=== PATIENT | female | born 1960 | race Caucasian/White ===

== ENCOUNTER → 2016-10-21 | Outpatient (REF) ==
--- NOTE | 2016-10-21 13:57 | REP ---
Clinical: Medical examination . Comparison: 08/02/2013 . Technique: PA and lateral. Findings: The mediastinum and cardiac silhouette are normal. The lung gerardo are clear and without acute consolidation, effusion, or pneumothorax. The skeletal structures are intact and normal. Impression: 1. No acute cardiopulmonary process. Signed by Ty Jenkins MD 10/21/2016 01:49 P
[2016-10-21 14:14] LABS: MEAN CORPUSCULAR HEMOGLOBIN 30.3 pg (27.0-33.0); MEAN CORPUSCULAR HGB CONC 32.5 g/dl (32.0-36.5); MEAN CORPUSCULAR VOLUME 93.1 fl (80.0-96.0); RED CELL DISTRIBUTION WIDTH 13.6 % (11.5-14.5); WHITE BLOOD COUNT 5.6 K/mm3 (4.0-10.0)
[2016-10-21 14:25] LABS: ANION GAP 4 MEQ/L (8-16); BLOOD UREA NITROGEN 17 MG/DL (7-18); CALCIUM LEVEL 9.3 MG/DL (8.5-10.1); CARBON DIOXIDE LEVEL 31 MEQ/L (21-32); CHLORIDE LEVEL 107 MEQ/L (98-107); CHOLESTEROL LEVEL 227 MG/DL (<200); CREATININE FOR GFR 0.73 MG/DL (0.55-1.02); GLOMERULAR FILTRATION RATE > 60.0 (>51); GLUCOSE, FASTING 89 MG/DL (70-105); POTASSIUM SERUM 4.3 MEQ/L (3.5-5.1); SODIUM LEVEL 142 MEQ/L (136-145); TRIGLYCERIDES LEVEL 137 MG/DL (<150)
--- NOTE | 2016-10-21 14:49 | ECGEPIP ---
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 Electronically Signed On 10-21-2016 14:49:23 EST by Joaquin Andino
[2016-10-22 11:46] LABS: HEPATITIS B SURFACE ANTIBODY POSITIVE (POSITIVE)
== END ==
LOC: M LAB 13:03
PROVIDERS: ATTEND Nurse Practitioner Adult Health
DX: Z00.00 Encounter for general adult medical examination without abnormal findings (principal)

== ENCOUNTER → 2016-12-01 | Outpatient (CLI) | payer BC | LOC: M LAB 10:45 | PROVIDERS: ATTEND Nurse Practitioner Adult Health | DX: N39.0 Urinary tract infection, site not specified (principal) ==

== ENCOUNTER → 2017-05-19 | Outpatient (REF) | payer BC | LOC: M LAB REF 12:41 | PROVIDERS: ATTEND Nurse Practitioner Adult Health | DX: D51.9 Vitamin B12 deficiency anemia, unspecified (principal) ==

== ENCOUNTER → 2018-09-01 | Outpatient (REF) ==
[2018-09-01 07:30] LABS: HEMATOCRIT 41.4 % (36.0-47.0); HEMOGLOBIN 13.2 g/dl (12.0-15.5); MEAN CORPUSCULAR HEMOGLOBIN 30.2 pg (27.0-33.0); MEAN CORPUSCULAR HGB CONC 31.9 g/dl (32.0-36.5); MEAN CORPUSCULAR VOLUME 94.7 fl (80.0-96.0); PLATELET COUNT, AUTOMATED 244 10^3/uL (150-450); RED BLOOD COUNT 4.37 10^6/uL (4.00-5.40); WHITE BLOOD COUNT 5.4 10^3/uL (4.0-10.0)
[2018-09-01 07:51] LABS: APPEARANCE, URINE CLEAR (CLEAR); BACTERIA, URINE AUTO NEGATIVE (NEGATIVE); BILIRUBIN, URINE AUTO NEGATIVE (NEGATIVE); BLOOD, URINE BLOOD NEGATIVE (NEGATIVE); COLOR, URINE YELLOW (YELLOW); GLUCOSE, URINE (UA) AUTO NEGATIVE (NEGATIVE); KETONE, URINE AUTO NEGATIVE (NEGATIVE); LEUKOCYTE ESTERASE, URINE AUTO NEGATIVE (NEGATIVE); NITRITE, URINE AUTO NEGATIVE (NEGATIVE); PROTEIN, URINE AUTO NEGATIVE (NEGATIVE); RBC, URINE AUTO 3 /HPF (0-3); SPECIFIC GRAVITY URINE AUTO 1.014 (1.002-1.035); SQUAMOUS EPITHELIAL CELL UR AU 0 /HPF (0-6); UROBILINOGEN, URINE AUTO 0.2 mg/dL (0.0-2.0); WBC, URINE AUTO 0 /HPF (0-3)
[2018-09-01 08:05] LABS: BLOOD UREA NITROGEN 14 MG/DL (7-18); CARBON DIOXIDE LEVEL 27 MEQ/L (21-32); CHLORIDE LEVEL 108 MEQ/L (98-107); CHOLESTEROL LEVEL 241 MG/DL (<200); CHOLESTEROL RISK RATIO 3.597 (<5); CREATININE FOR GFR 0.72 MG/DL (0.55-1.30); GLOMERULAR FILTRATION RATE > 60.0 (>51); GLUCOSE, FASTING 78 MG/DL (70-100); HDL CHOLESTEROL 67 MG/DL (>40); LDL CHOLESTEROL 153 MG/DL (<100); NON-HDL-C 174 MG/DL; POTASSIUM SERUM 4.3 MEQ/L (3.5-5.1); SODIUM LEVEL 143 MEQ/L (136-145); TRIGLYCERIDES LEVEL 103 MG/DL (<150)
--- NOTE | 2018-09-01 21:41 | ECGEPIP ---
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
== END ==
LOC: M LAB 06:38
PROVIDERS: ATTEND Nurse Practitioner Adult Health
DX: Z00.00 Encounter for general adult medical examination without abnormal findings (principal)

== ENCOUNTER → 2019-06-05 | Outpatient (REF) | payer BC ==
[2019-06-05 14:12] LABS: INR 1.02; PROTHROMBIN TIME 13.1 SECONDS (11.8-14.0)
== END ==
LOC: M LAB REF 12:36
PROVIDERS: ATTEND Nurse Practitioner Adult Health
DX: Z01.818 Encounter for other preprocedural examination (principal)

== ENCOUNTER → 2019-10-30 | Outpatient (POV) | payer BC ==
[~2019-10-30] VITALS: Ht 167.6 cm; Wt 71.8 kg
[2019-10-30 10:00] VITALS: BP 144/71
--- NOTE | 2019-10-31 10:04 | IRCOV ---
[facility] IR Consult Office Visit IR Consult Office Visit DATE: Oct 30, 2019 REASON FOR CONSULTATION/CHIEF COMPLAINT: Varicose veins. HISTORY OF PRESENT ILLNESS: 58-year-old female with long history of left lower extremity pain and swelling associated with bulging varicose veins. Legs are itchy all day. She is on her feet all day, she does wear compression stockings without much relief. She reports prior vein stripping in the left lower extremity 2. Effects lasted less than a year. No prior deep vein thrombosis. She does have a family history of varicose veins. ALLERGIES: Please see below. HOME MEDICATIONS: Please see below. PAST MEDICAL HISTORY: Cobalamin deficiency. Varicose veins. PAST SURGICAL HISTORY: 1. Breast biopsy Varicose vein ligation Partial hysterectomy FAMILY HISTORY: Father's side of the family - varicose veins. SOCIAL HISTORY: Nonsmoker. No alcohol or drugs. REVIEW OF SYSTEMS: Otherwise negative. PHYSICAL EXAMINATION: VITAL SIGNS: Please see below. GENERAL APPEARANCE: Appears well. Comfortable at rest. HEENT: No scleral icterus. RESPIRATORY: Normal breathing at rest. CARDIOVASCULAR: Normal rate. ABDOMEN: Soft nontender. EXTREMITIES: Left lower extremity: Left lower extremity appears larger than the right lower extremity. Visible bulging varicose veins along the GSV distribution. Superficial spider veins are noted. No hemosiderin deposition. No lipodermatosclerosis. No ulcers. Warm to touch. DP/PT + Right lower extremity:: Warm to touch. No edema, no visible varicosities. DP/PT + NEUROLOGICAL: Alert and oriented. PSYCHIATRIC: Appropriate to circumstance. LABORATORY DATA: Please see below. Imaging: I reviewed the ultrasound left lower extremity venous reflux study from October 2019. There is reflux in the saphenous system. ASSESSMENT/PLAN: 58-year-old female with left lower extremity venous hypertension associated with pain and swelling. She would benefit from EVLT therapy. We discussed the risks and benefits of the procedure and she would like to proceed. We will scheduled the patient for this procedure. I spent 30 minutes in consultation with the patient. Thank you for this referral. Nathalie Wilburn Allergies Coded Allergies: MS - Penicillins (Unverified Allergy, Intermediate, RASH, 12/04/12) MS - Penicillins Cross Reactors (Unverified Allergy, Intermediate, RASH, 12/04/12) MS - Sulfa Drugs (Unverified Allergy, Intermediate, RASH, 12/04/12) Replaces SULFAMETHOXAZ MS - Sulfa Drugs Cross Reactors (Unverified Allergy, Intermediate, RASH, 12/04/12) Replaces SULFAMETHOXAZ MS - Sulfamethoxazole (Unverified Allergy, Intermediate, RASH, 12/04/12) Replaces SULFAMETHOXAZ MS - Trimethoprim (Unverified Allergy, Intermediate, RASH, 12/04/12) Replaces SULFAMETHOXAZ VS, I&O, 24H, Fishbone Vital Signs/I&O Vital Signs Date Time Temp Pulse Resp B/P (MAP) Pulse Ox O2 Delivery O2 Flow Rate FiO2 10/30/19 10:00 97.9 75 18 144/71 (95) 98 Room Air JENNY WETZEL MD Oct 31, 2019 10:04
== END ==
LOC: M IRPOV 09:47
PROVIDERS: ATTEND Radiology Diagnostic Radiology
DX: I87.302 Chronic venous hypertension (idiopathic) without complications of left lower extremity (principal); M79.605 Pain in left leg

== ENCOUNTER → 2020-02-18 | Outpatient (CLI) | payer BC ==
[~2020-02-18] MED LIST: ALBU8.5H INH; LIDOCAINE 1% MDV 20ML VIAL As Ordered ONE; LIDOCAINE 2% MDV 20ML VIAL As Ordered ONE; MIDAZOLAM INJ 2MG/2ML VIAL (J2250 PER 1MG) As Ordered ONE; PROMETHAZINE INJ 25 MG/ML VIAL (J2550) As Ordered ONE; diphenhydrAMINE 50MG/ML VIAL (J1200) As Ordered ONE; fentaNYL 100 MCG/2 ML INJECTION (J3010) As Ordered ONE
[2020-02-18 15:45] VITALS: BP 113/67
--- NOTE | 2020-02-21 11:01 | REP ---
IR Endovenous laser treatment for left leg varicose vein. IR Ultrasound of the left leg. IR Tumescent anesthesia under ultrasound guidance. IR moderate sedation. Clinical information: Left lower extremity varicose veins. Left anterior accessory greater saphenous vein dilated and incompetent with 0.5 seconds reflux. Physician: Dr. Becker. Procedure: The patient was advised of the benefits, risks and alternatives of the procedure and informed consent was obtained. The time-out was performed with verification of the patient's name, MRN, site of procedure and type of procedure to be performed. The patient was positioned in the supine position on the table. The site was prepped and draped in the usual sterile fashion. Moderate sedation was performed by the physician including the presence of an independent trained observer who assisted in monitoring the patient's level of consciousness and physiologic status. Following the administration of fentanyl and Versed , the physician spent 60 minutes of continuous face to face time with the patient. Ultrasound of the left lower extremity demonstrates dilated left anterior accessory greater saphenous vein with greater than 0.5 seconds reflux. Previously treated GSV without recanalization. The access site was identified with ultrasound and anesthetized with lidocaine. The anterior accessory GSV was accessed under ultrasound guidance mid thigh, using a micro introducer needle. An 018 cope wire was advanced into the vein. Incision at the access site was made using a scalpel. The needle was removed and a micro sheath was advanced over the wire under ultrasound guidance. The wire was exchanged for a longer wire. The micro sheath was removed over the wire and an access sheath was advanced over the wire, under ultrasound guidance and positioned 2.5 centimeters from the saphenofemoral junction. The laser fiber was advanced through the catheter under ultrasound guidance and positioned with the tip located > 2.5 cm from the saphenous femoral junction. Tumescent anesthesia was then injected under ultrasound guidance along the entire length of the vein to be treated. Repeat ultrasound of the saphenofemoral junction was used to confirm positioning of the tip of the laser back > 2.5 cm from junction. The patient was positioned in Trendelenburg. The laser was then activated and under ultrasound guidance used to laser the anterior accessory greater saphenous vein back to the access point. Simultaneous manual compression was applied to the treated vein. Treatment: Wattage: 7 Time: 66 seconds Pullback rate 1 cm every 7 seconds Total Energy deposited 464 joules Treatment 50 joules per centimeter of vein. The fiber, catheter and sheath were removed, pressure held and hemostasis achieved. A sterile dressing was applied to the site. Compression dressing was then applied to the leg, from ankle to groin. The patient tolerated the procedure well and was returned to the PRU in stable condition. EBL: < 5 ml. Complications: None. Impression: 1. Ultrasound demonstrates incompetent left anterior accessory greater saphenous vein with greater than 0.5-second reflux. 2. Successful left anterior accessory greater saphenous vein ablation with laser. 3. Compression dressing applied from ankle to groin. Patient to return in 1 week for follow up ultrasound at which time the compression dressing will be switched to stockings. Thank you this referral. Nathalie Wilburn Electronically Signed by Chely Becker MD 02/21/2020 10:59 A
== END ==
LOC: M IRPRO 11:29
PROVIDERS: ATTEND Radiology Diagnostic Radiology
DX: I83.813 Varicose veins of bilateral lower extremities with pain (principal); I87.2 Venous insufficiency (chronic) (peripheral)
CPT/HCPCS: 36478; 76940; 99152; 99153; J1200; J2250; J3010

== ENCOUNTER → 2020-02-27 | Outpatient (CLI) | payer BC ==
[~2020-02-27] MED LIST changes: -LIDOCAINE 1% MDV 20ML VIAL As Ordered ONE; -LIDOCAINE 2% MDV 20ML VIAL As Ordered ONE; -MIDAZOLAM INJ 2MG/2ML VIAL (J2250 PER 1MG) As Ordered ONE; -PROMETHAZINE INJ 25 MG/ML VIAL (J2550) As Ordered ONE; -diphenhydrAMINE 50MG/ML VIAL (J1200) As Ordered ONE; -fentaNYL 100 MCG/2 ML INJECTION (J3010) As Ordered ONE
--- NOTE | 2020-02-27 16:15 | REP ---
Clinical: Status post intravenous layer of therapy with pain Technique: Asif scale and color Doppler evaluation left lower extremity using linear high frequency transducer. Findings: The greater saphenous vein is thrombosed and consistent with recent EVLT. Ultrasound examination of the left lower extremity deep venous structures from the common femoral vein to the popliteal vein demonstrates normal compressibility flow and wave patterns in response to respiration and augmentation. There is no evidence for deep venous thrombosis. Impression: No evidence for deep venous thrombosis. Electronically Signed by Ty Jenkins MD 02/27/2020 04:07 P
== END ==
LOC: M RAD 15:33
PROVIDERS: ATTEND Radiology Diagnostic Radiology
DX: Z98.890 Other specified postprocedural states (principal); I80.02 Phlebitis and thrombophlebitis of superficial vessels of left lower extremity

== ENCOUNTER → 2020-07-21 | Outpatient (CLI) | payer SELFPAY | LOC: M LABSMTC 13:12 | PROVIDERS: ATTEND Pediatrics | DX: Z20.828 Contact with and (suspected) exposure to other viral communicable diseases (principal) ==

== ENCOUNTER → 2020-10-26 | Outpatient (CLI) | payer BC | LOC: M LAB 08:07 | PROVIDERS: ATTEND Nurse Practitioner Adult Health | DX: R19.7 Diarrhea, unspecified (principal) ==

== ENCOUNTER → 2020-12-02 | Outpatient (REF) | LOC: M LABSMTC 13:07 | PROVIDERS: ATTEND Pediatrics | DX: Z20.822 Contact with and (suspected) exposure to COVID-19 (principal) ==

== ENCOUNTER → 2020-12-04 | Outpatient (REF) | payer BC | LOC: M LAB REF 12:21 | PROVIDERS: ATTEND Nurse Practitioner Adult Health | DX: K90.0 Celiac disease (principal) ==

== ENCOUNTER → 2021-01-06 | Outpatient (REF) | payer BC | LOC: M LAB REF 09:05 | PROVIDERS: ATTEND Internal Medicine Gastroenterology | DX: R19.4 Change in bowel habit (principal) ==

== ENCOUNTER → 2021-01-07 | Outpatient (CLI) | payer BC | LOC: M LAB 06:38 | PROVIDERS: ATTEND Nurse Practitioner Family | DX: R19.4 Change in bowel habit (principal) ==

== ENCOUNTER → 2021-07-14 | Outpatient (CLI) | payer BC ==
[2021-07-14 12:53] LABS: BLOOD UREA NITROGEN 13 MG/DL (7-18); CALCIUM LEVEL 9.4 MG/DL (8.8-10.2); CARBON DIOXIDE LEVEL 30 MEQ/L (21-32); CHLORIDE LEVEL 106 MEQ/L (98-107); CREATININE FOR GFR 0.71 MG/DL (0.55-1.30); GLOMERULAR FILTRATION RATE > 60.0 (>45); GLUCOSE, FASTING 87 MG/DL (70-100); POTASSIUM SERUM 4.3 MEQ/L (3.5-5.1); SODIUM LEVEL 140 MEQ/L (136-145)
== END ==
LOC: M LAB 11:48
PROVIDERS: ATTEND Nurse Practitioner Adult Health
DX: R19.4 Change in bowel habit (principal); Z80.3 Family history of malignant neoplasm of breast

== ENCOUNTER → 2021-12-20 | Outpatient (CLI) | payer BC | LOC: M EKG 10:37 | PROVIDERS: ATTEND Nurse Practitioner Adult Health | DX: R00.2 Palpitations (principal); R06.00 Dyspnea, unspecified ==

== ENCOUNTER → 2022-01-06 | Outpatient (CLI) | payer BC ==
[2022-01-06 14:29] LABS: FREE T4 0.86 NG/DL (0.76-1.46); THYROID STIMULATING HORMONE 1.73 uIU/ML (0.358-3.740)
== END ==
LOC: M LAB 13:16
PROVIDERS: ATTEND Nurse Practitioner Adult Health
DX: R00.2 Palpitations (principal)